=== PATIENT | male | born 1995 | race Two or more races ===

== ENCOUNTER 2020-03-13 17:18 | Emergency (ER) | payer BC, OTHER ==
[~2020-03-13] VITALS: Ht 177.8 cm; Wt 80.1 kg
--- NOTE | 2020-03-13 17:49 | NUR ---
PT CAME IN VIA POV. PER PT "HEART HAS BEEN HURTING ABOUT THE LAST WEEK". PT WAS SENT [facility]. PER PT HE HAD SOB, BODY ACHES, AND HEADACHES ABOUT 3 WEEKS AGO AND THEN STARTED TO GET CHEST PAIN. PAIN IS DESCRIBED TIGHTNESS, 6/10 PAIN. PT RESTING IN [facility], MONITORING IN PLACE, NADN AT THIS TIME, WILL CONTINUE TO MONITOR.
[2020-03-13] MEDS ORDERED: IBUPROFEN 600 MG TABLET ONE (17:53)
[2020-03-13] MEDS ORDERED: IBUPROFEN 600 MG TABLET PO ONE (18:00)
[2020-03-13] MEDS ORDERED: PLEASE ENTER ALLERGIES MC SCH (18:00)
[2020-03-13 18:12] LABS: BASOPHILS % (AUTO) 1 % (0-1); EOSINOPHILS % (AUTO) 0 % (1-7); LYMPHOCYTES % (AUTO) 19 % (22-44); MEAN CORPUSCULAR HEMOGLOBIN 31.2 pg (27.5-34.5); MEAN CORPUSCULAR HGB CONC 34.3 g/dL (33.2-36.2); MEAN PLATELET VOLUME 8.9 fL (7.4-10.4); MONOCYTES % (AUTO) 9 % (2-9); NEUTROPHILS % (AUTO) 71 % (42-75); PLATELET COUNT 219 x10^3/uL (130-400); RED BLOOD COUNT 4.99 x10^6/uL (4.38-5.82); RED CELL DISTRIBUTION WIDTH 12.2 % (9.4-14.8)
[2020-03-13 18:13] LABS: MD NO
[2020-03-13 18:19] VITALS: BP 140/81
--- NOTE | 2020-03-13 18:19 | NUR ---
PT RESTING IN [facility] [place], STATES PAIN STILL 6/10. MONITORING IN PLACE, NADN AT THIS TIME, WILL CONTINUE TO MONITOR.
[2020-03-13 18:20] LABS: ALBUMIN 4.3 g/dL (3.4-5.0); ANION GAP 4 mmol/L (5-15); CALCIUM 9.4 mg/dL (8.5-10.1); CHLORIDE 109 mmol/L (98-107); CREATININE 0.76 mg/dL (0.7-1.3)
--- NOTE | 2020-03-13 18:37 | NUR ---
BREAK RN: DR SEN AT BEDSIDE. LAB & TEST RESULTS REVIEWED, D/C INST REVIEWED AND QUESTIONS ANSWERED.
--- NOTE | 2020-03-13 18:47 | NUR ---
BREAK RN: Patient/Caregiver given discharge instructions and they have confirmed that they understand the instructions. Patient ambulatory with steady gait.
== END 2020-03-13 18:58 | disposition home or self-care (01) ==
LOC: ED 18:46
DX: R07.89 Other chest pain (principal); R06.00 Dyspnea, unspecified; R51.9 Headache, unspecified
CPT/HCPCS: 36415; 71045; 80048; 82040; 85025; 85379; 93005; 99285

== ENCOUNTER 2020-03-26 12:15 | Emergency (ER) | payer OTHER ==
[~2020-03-26] VITALS: Ht 177.8 cm; Wt 80.2 kg
[2020-03-26] MEDS ORDERED: KETOROLAC 30 MG/1 ML ONE (12:39)
--- NOTE | 2020-03-26 12:44 | NUR ---
LABS DRAWN BY TECH. TORADOL GIVEN PER ERP ORDER FOR CHEST "TIGHTNESS". PT ON ALL ROOM MONITORING. REPEAT EKG COMPLETED. CALL LIGHT WITHIN REACH.
[2020-03-26 12:57] LABS: BASOPHILS % (AUTO) 0 % (0-1); EOSINOPHILS % (AUTO) 2 % (1-7); LYMPHOCYTES % (AUTO) 25 % (22-44); MEAN CORPUSCULAR HEMOGLOBIN 31.2 pg (27.5-34.5); MEAN CORPUSCULAR HGB CONC 34.5 g/dL (33.2-36.2); MEAN PLATELET VOLUME 8.9 fL (7.4-10.4); MONOCYTES % (AUTO) 10 % (2-9); NEUTROPHILS % (AUTO) 63 % (42-75); PLATELET COUNT 229 x10^3/uL (130-400); RED BLOOD COUNT 5.37 x10^6/uL (4.38-5.82); RED CELL DISTRIBUTION WIDTH 12.4 % (9.4-14.8)
[2020-03-26] MEDS ORDERED: KETOROLAC 30 MG/1 ML IM ONE (13:00)
[2020-03-26 13:03] LABS: MD NO
[2020-03-26 13:10] LABS: ALBUMIN 4.3 g/dL (3.4-5.0); C-REACTIVE PROTEIN, QUANT 0.06 mg/dL (0.02-0.49); CALCIUM 9.2 mg/dL (8.5-10.1); CHLORIDE 107 mmol/L (98-107); CREATININE 0.69 mg/dL (0.7-1.3)
[2020-03-26 13:14] LABS: TROPONIN I < 0.015 ng/mL (0.000-0.045)
[2020-03-26 13:19] LABS: ANION GAP 6 mmol/L (5-15)
[2020-03-26 13:47] VITALS: BP 136/83
--- NOTE | 2020-03-26 13:51 | NUR ---
ECHO COMPLETED, AWAITING READ. VSS/UPDATED IN COMPUTER. PT STATES "TIGHTNESS" TO LEFT CHEST UNCHANGED. CALL LIGHT WITHIN REACH, WARM BLANKET OFFERED.
[2020-03-26 13:58] LABS: HCT (SEDRATE) 48.6 % (39.2-51.8)
== END 2020-03-26 15:36 | disposition home or self-care (01) ==
LOC: ED 15:00
DX: R07.89 Other chest pain (principal); I31.9 Disease of pericardium, unspecified
CPT/HCPCS: 36415; 71045; 80048; 82040; 84484; 85025; 85651; 86140; 93005; 93306; 93356; 96372; 99285; J1885